=== PATIENT | male | born 1965 | race Caucasian/White ===

== ENCOUNTER → 2019-06-08 11:38 | Outpatient (CLI) | payer OTHER, SELFPAY ==
[2019-06-08 12:46] LABS: Alanine Aminotransferase 23 IU/L (<50); Aspartate Aminotransferase 23 IU/L (17-59); Cholesterol 248 mg/dL (140-199); Glucose 86 mg/dL (70-100); HDL Cholesterol 44 mg/dL (40-60); LDL Cholesterol Calculated 183 mg/dL (<100); Triglycerides 104 mg/dL (35-150)
== END ==
PROVIDERS: Family Provider Nurse Practitioner Family; PCP Nurse Practitioner Family; Visit Provider Nurse Practitioner
DX: E78.01 Familial hypercholesterolemia (principal); E78.41 Elevated Lipoprotein(a); Z82.49 Family history of ischemic heart disease and other diseases of the circulatory system
CPT/HCPCS: 36415; 80061; 82947; 84450; 84460

== ENCOUNTER → 2020-02-22 08:50 | Outpatient (CLI) | payer OTHER, SELFPAY ==
[2020-02-22 09:59] LABS: Alanine Aminotransferase 48 IU/L (<50); Aspartate Aminotransferase 34 IU/L (17-59); Cholesterol 64 mg/dL (140-199); Glucose 82 mg/dL (70-100); HDL Cholesterol 46 mg/dL (40-60); LDL Cholesterol Calculated 10 mg/dL (<100); Triglycerides 40 mg/dL (35-150)
== END ==
PROVIDERS: Family Provider Nurse Practitioner Family; PCP Internal Medicine; Referring Provider Nurse Practitioner; Visit Provider Nurse Practitioner
DX: E78.01 Familial hypercholesterolemia (principal)
CPT/HCPCS: 36415; 80061; 82947; 84450; 84460

== ENCOUNTER → 2020-09-19 10:21 | Outpatient (CLI) | payer OTHER, SELFPAY ==
[2020-09-19 12:11] LABS: Cholesterol 61 mg/dL (140-199); Glucose 90 mg/dL (70-100); HDL Cholesterol 43 mg/dL (40-60); LDL Cholesterol Calculated 11 mg/dL (<100); Triglycerides 35 mg/dL (35-150)
== END ==
PROVIDERS: Family Provider Nurse Practitioner Family; PCP Internal Medicine; Referring Provider Nurse Practitioner; Visit Provider Nurse Practitioner
DX: E78.01 Familial hypercholesterolemia (principal); E78.41 Elevated Lipoprotein(a); R93.1 Abnormal findings on diagnostic imaging of heart and coronary circulation; Z82.49 Family history of ischemic heart disease and other diseases of the circulatory system
CPT/HCPCS: 36415; 80061; 82947

== ENCOUNTER → 2021-02-18 14:17 | Outpatient (CLI) | payer OTHER, SELFPAY ==
[2021-02-18 15:25] LABS: Alanine Aminotransferase 23 IU/L (<50); Aspartate Aminotransferase 26 IU/L (17-59); Cholesterol 75 mg/dL (140-199); Glucose 90 mg/dL (70-100); HDL Cholesterol 53 mg/dL (40-60); LDL Cholesterol Calculated 15 mg/dL (<100); Triglycerides 35 mg/dL (35-150)
== END ==
PROVIDERS: Family Provider Nurse Practitioner Family; PCP Internal Medicine; Referring Provider Nurse Practitioner; Visit Provider Nurse Practitioner
DX: R93.1 Abnormal findings on diagnostic imaging of heart and coronary circulation (principal); E78.01 Familial hypercholesterolemia
CPT/HCPCS: 36415; 80061; 82947; 84450; 84460

== ENCOUNTER → 2021-11-25 13:50 | Outpatient (CLI) | payer OTHER, SELFPAY ==
[2021-11-25 14:42] LABS: Alanine Aminotransferase 40 IU/L (<50); Aspartate Aminotransferase 34 IU/L (17-59); Cholesterol 70 mg/dL (140-199); Glucose 103 mg/dL (70-100); HDL Cholesterol 43 mg/dL (40-60); LDL Cholesterol Calculated 20 mg/dL (<100); Triglycerides 34 mg/dL (35-150)
== END ==
PROVIDERS: Family Provider Nurse Practitioner Family; PCP Internal Medicine; Referring Provider Nurse Practitioner; Visit Provider Nurse Practitioner
DX: E78.01 Familial hypercholesterolemia (principal); E78.41 Elevated Lipoprotein(a); R93.1 Abnormal findings on diagnostic imaging of heart and coronary circulation; Z82.49 Family history of ischemic heart disease and other diseases of the circulatory system
CPT/HCPCS: 36415; 80061; 82947; 84450; 84460

== ENCOUNTER → 2022-07-27 13:10 | Outpatient (CLI) | payer OTHER, SELFPAY ==
[2022-07-27 14:21] LABS: Thyroid Stimulating Hormone 2.16 uIU/mL (0.47-4.68)
[2022-07-27 15:29] LABS: Creatinine Urine Random 217.5 mg/dL
[2022-07-27 15:33] LABS: Microalbumi Creatinin Ratio Ur 4.5 ug/mg CR (<30)
[2022-07-27 19:44] LABS: Hemoglobin A1C% w Est Avg Glu 5.4 % (4.0-6.0)
[2022-07-27 19:54] LABS: Alanine Aminotransferase 29 IU/L (<50); Albumin 4.2 g/dL (3.5-5.0); Albumin Globulin Ratio 1.4 (1.0-2.8); Alkaline Phosphatase 55 U/L (38-126); Aspartate Aminotransferase 33 IU/L (17-59); BUN Creatinine Ratio 22.4 (6-22); Bilirubin Total 0.6 mg/dL (0.2-1.3); Blood Urea Nitrogen 17 mg/dL (9-20); Calcium 9.2 mg/dL (8.4-10.2); Carbon Dioxide 28 mmol/L (22-32); Chloride 104 mmol/L (98-107); Cholesterol 67 mg/dL (140-199); Creatine Kinase 132 U/L (55-170); Estimated Glomerular Filt Rate > 60 mL/min (>60); Globulin 3.1 g/dL (1.7-4.1); Glucose 97 mg/dL (70-100); HDL Cholesterol 42 mg/dL (40-60); HEMOLYSIS 15 (0-50); LDL Cholesterol Calculated 15 mg/dL (<100); Potassium 4.1 mmol/L (3.4-5.1); Sodium 139 mmol/L (137-145); Total Protein 7.3 g/dL (6.3-8.2); Triglycerides 49 mg/dL (35-150)
[2022-07-28 07:36] LABS: Apolipoprotein B 22 mg/dL (<90)
[2022-07-29 16:18] LABS: Lipoprotein (a) 88.3 nmol/L (<75.0)
== END ==
PROVIDERS: Family Provider Nurse Practitioner Family; PCP Internal Medicine; Referring Provider Internal Medicine; Visit Provider Internal Medicine
DX: E78.5 Hyperlipidemia, unspecified (principal)
CPT/HCPCS: 36415; 80053; 80061; 82043; 82172; 82550; 82570; 83036; 83695; 84443

== ENCOUNTER → 2022-12-11 12:07 | Outpatient (CLI) | payer OTHER, SELFPAY ==
--- NOTE | 2022-12-11 12:09 | DI.MRI.S_ITS ---
PROCEDURE: MR SHOULDER RT WO CON INDICATIONS: ASSESS ROTATOR CUFF TECHNIQUE: Noncontrast oblique coronal T2 fast spin echo with fat saturation, oblique sagittal T1 spin echo and T2 fast spin echo with fat saturation, axial T1 spin echo and T2 fast spin echo with fat saturation through the shoulder. COMPARISON: CR, SHOULDER MINIMUM 2 VIEW LEFT, 07/11/2015, 16:05. CR, SHOULDER MINIMUM 2VIEW RIGHT, 07/11/2015, 16:05. [facility], CR, XR SHOULDER 2+ VIEWS RIGHT, 09/22/2022, 12:07. [facility], MR, SHOULDER WITHOUT CONTRAST, 09/18/2015, 10:13. FINDINGS: Image quality: There are motion artifacts. Rotator cuff: There is full-thickness tear of the subscapularis tendon with tendon retraction to the musculotendinous junction. There is edema at the musculotendinous junction. No subscapularis muscle atrophy. There is full-thickness tear of the anterior fibers of the distal supraspinatus tendon at the humeral attachment. There is mild supraspinatus muscle atrophy. There is moderate tendinosis of the infraspinatus tendon. There is partial-thickness tear of the distal infraspinatus tendon at the humeral attachment. No tendon retraction or muscle atrophy. Bones and bursae: No bone marrow contusions or acute fractures. There is an old distal clavicular fracture. There is moderate acromioclavicular and glenohumeral joint degeneration. The acromion demonstrates conventional anatomy, without an os acromiale. Small subacromial-subdeltoid bursal fluid is present, likely related to rotator cuff tendon tear and small glenohumeral joint effusion. Capsule and soft tissues: There is anterior inferior labral tear. There is partial tear of the inferior glenohumeral ligament. The long head of the biceps tendon is not well seen, likely torn and retracted. The rotator interval appears normal, without fibrosis. The coracohumeral ligament is normal in thickness. IMPRESSION: 1. Full-thickness tear of the subscapularis tendon with tendon retraction to the musculotendinous junction. No subscapularis muscle atrophy. 2. Full-thickness tear of the anterior fibers of the supraspinatus tendon. There is mild supraspinatus muscle atrophy. 3. Moderate infraspinatus tendinosis with partial-thickness tendon tear and humeral attachment. 4. Tear of the long head of the biceps tendon with tendon retraction. 5. Moderate acromioclavicular and glenohumeral joint degeneration. 6. Inferior inferior labral tear. There is partial tear of the inferior glenohumeral ligament. 7. Old distal clavicular fracture. Dictated by: Jordon Mustafa M.D. on 12/13/2022 at 16:00 Approved by: Jordon Mustafa M.D. on 12/14/2022 at 11:13
== END ==
PROVIDERS: Family Provider Nurse Practitioner Family; PCP Internal Medicine; Referring Provider Orthopaedic Surgery; Visit Provider Orthopaedic Surgery
DX: M75.121 Complete rotator cuff tear or rupture of right shoulder, not specified as traumatic (principal); M19.011 Primary osteoarthritis, right shoulder; S46.111A Strain of muscle, fascia and tendon of long head of biceps, right arm, initial encounter; S43.491A Other sprain of right shoulder joint, initial encounter
CPT/HCPCS: 73221

== ENCOUNTER → 2023-09-19 15:53 | Outpatient (CLI) | payer OTHER, SELFPAY ==
[2023-09-19 17:06] LABS: Add Manual Diff / Slide Review NO; Basophils Absolute Auto 0 /uL (0-100); Basophils Percent Auto 0.6 % (0-2); Eosinophils Absolute Auto 100 /uL (0-450); Eosinophils Percent Auto 1.6 % (2-4); Hematocrit 38.8 % (41-53); Hemoglobin 12.5 g/dL (13.5-17.5); Lymphocytes Absolute Auto 2000 /uL (1100-4500); Lymphocytes Percent Auto 36.6 % (25-40); Mean Corpuscular HGB Conc 32.3 % (30-36); Mean Corpuscular Hemoglobin 25.6 PG (26-34); Mean Corpuscular Volume 79.1 fL (80-100); Monocytes Absolute Auto 700 /uL (0-900); Monocytes Percent Auto 13.3 % (3-14); Neutrophils Absolute Auto 2600 /uL (1500-7000); Neutrophils Percent Auto 47.9 % (50-75); Platelet Count 293 X10^3/uL (150-400); White Blood Cell Count 5.4 X10^3/uL (4.5-11.0)
[2023-09-19 17:33] LABS: Alanine Aminotransferase 22 IU/L (<50); Albumin 4.5 g/dL (3.5-5.0); Albumin Globulin Ratio 1.6 (1.0-2.8); Alkaline Phosphatase 53 U/L (38-126); Aspartate Aminotransferase 24 IU/L (17-59); BUN Creatinine Ratio 22.9 (6-22); Bilirubin Total 0.5 mg/dL (0.2-1.3); Blood Urea Nitrogen 16 mg/dL (9-20); Calcium 9.1 mg/dL (8.4-10.2); Carbon Dioxide 27 mmol/L (22-32); Chloride 106 mmol/L (98-107); Cholesterol 217 mg/dL (140-199); Estimated Glomerular Filt Rate > 60 mL/min (>60); Globulin 2.9 g/dL (1.7-4.1); Glucose 95 mg/dL (70-100); HDL Cholesterol 50 mg/dL (40-60); HEMOLYSIS < 15 (0-50); LDL Cholesterol Calculated 147 mg/dL (<100); Sodium 137 mmol/L (137-145); Total Protein 7.4 g/dL (6.3-8.2); Triglycerides 102 mg/dL (35-150)
[2023-09-19 17:45] LABS: Free T4, Direct Thyroxine 1.19 ng/dL (0.78-2.19)
[2023-09-19 17:59] LABS: Thyroid Stimulating Hormone 2.92 uIU/mL (0.47-4.68)
[2023-09-19 18:03] LABS: Prostate Specific Antigen 1.09 ng/mL (0.10-4.00)
== END ==
PROVIDERS: Family Provider Nurse Practitioner Family; PCP Internal Medicine; Referring Provider Internal Medicine; Visit Provider Internal Medicine
DX: Z12.5 Encounter for screening for malignant neoplasm of prostate (principal); Z13.29 Encounter for screening for other suspected endocrine disorder; E78.01 Familial hypercholesterolemia; Z13.0 Encounter for screening for diseases of the blood and blood-forming organs and certain disorders involving the immune mechanism; Z13.228 Encounter for screening for other metabolic disorders
CPT/HCPCS: 36415; 80053; 80061; 84153; 84439; 84443; 85025

== ENCOUNTER → 2025-02-27 08:50 | Outpatient (CLI) | payer OTHER, SELFPAY ==
[2025-02-27 09:39] LABS: Influenza A - CEPHEID Flu A NEGATIVE (NEGATIVE); Influenza B - CEPHEID Flu B NEGATIVE (NEGATIVE)
[2025-02-27 09:40] LABS: COVID-19 CEPHEID 4-PLEX PCR POSITIVE (Negative)
== END ==
PROVIDERS: Family Provider Nurse Practitioner Family; PCP Internal Medicine; Visit Provider Chiropractor
DX: J02.9 Acute pharyngitis, unspecified (principal)
CPT/HCPCS: 87637